=== PATIENT | male | born 2000 | race Hispanic/Latino ===

== ENCOUNTER 2022-08-27 19:33 | Emergency (ER) | payer BC ==
[~2022-08-27] VITALS: Ht 172.7 cm; Wt 127.0 kg
[2022-08-27 20:00] VITALS: O2SAT 98
[2022-08-27] MEDS ORDERED: TYLENOL325 MG PO (22:26)
[2022-08-27] MEDS ORDERED: IBUPROFEN200 MG PO (22:26)
== END 2022-08-27 22:34 | disposition home or self-care (01) ==
LOC: FSED 19:37
DX: M54.42 Lumbago with sciatica, left side (principal); M54.41 Lumbago with sciatica, right side; R05.9 Cough, unspecified; R09.89 Other specified symptoms and signs involving the circulatory and respiratory systems
CPT/HCPCS: 74176; 81003; 99284